=== PATIENT | female | born 1985 | race Caucasian/White ===

== ENCOUNTER → 2017-03-06 | Day surgery (SDC) | payer BC ==
[~2017-03-06] MED LIST: Ketorolac 30 MG/ML SDV IVPUSH ONE; Lactated Ringers 1,000 ML IV SCH; Propofol 200 MG/20 ML SDV IV ONE
[2017-03-06 12:20] VITALS: BP 122/77
--- NOTE | 2017-03-09 07:13 | OR ---
DATE OF OPERATION: 03/06/2017 PREOPERATIVE DIAGNOSIS: 1. ABDOMINAL PAIN. 2. HEMATOCHEZIA. POSTOPERATIVE DIAGNOSIS: 1. ABDOMINAL PAIN. 2. HEMATOCHEZIA. SURGEON: Dl Ward MD PROCEDURE: 1. ESOPHAGOGASTRODUODENOSCOPY WITH BIOPSY X1, SHAN. 2. FULL LENGTH COLONOSCOPY WITH RANDOM BIOPSIES X5. 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 COMPLICATIONS: None. SPECIMEN: 1. Duodenal biopsy. 2. SHAN. 3. Five random colon biopsies. FINDINGS: 1. Normal EGD. 2. Normal full-length colonoscopy. RECOMMENDATIONS: Medical followup with Roxane Ochoa. INDICATIONS: The patient has a long history of chronic abdominal pain. She has had some occasional bright red blood per rectum. Roxane recommended upper and lower endoscopy. DESCRIPTION OF PROCEDURE: The patient was prepped and draped, placed in the left lateral decubitus position. A lubricated Olympus gastroscope was inserted over a bit and advanced the cricopharyngeus area, easily intubated in the esophagus. Esophageal lining was benign in its entire course. The Z-line was crisp and sharp at 39 cm. No hiatal hernia. No distal esophagitis, stricturing, ulceration, or bleeding sites. I see no stricturing, ulceration, or Brown's changes. Scope advanced through the stomach and pylorus and into the second portion of duodenum. Second portion of duodenum and the bulb also looked fine. We did a biopsy for celiac. The scope was brought back into the stomach and retroflexed. The upper fundus and cardia were benign. Upon extension full evaluation of the gastric lining showed no polyps, masses, ulcerations, bleeding sites, or signs of peptic ulcer disease. A CLOtest was obtained. Air was then suctioned from the stomach. The scope was removed without complication. A lubricated Olympus colonoscope was inserted and easily advanced to the cecum. Direct visualization of the ileocecal valve and appendiceal orifice was accomplished. Bowel prep was excellent. Attempted multiple times to get into the ileocecal valve. It was very hyper-acute angle, tried to intubate in here and I could not. I did get an excellent look at the entire colon lining, throughout the entire colon, she had no signs of polyps, masses, ulceration, bleeding sites. No vascular abnormalities or signs of colitis. There were no diverticula. I did do random biopsies in the ascending, transverse, descending, sigmoid, and rectosigmoid area. The rectal vault appeared unremarkable. Retroflexion of scope in the rectum showed no perianal lesions. Air was then suctioned. The scope was removed without complication. HARRY/SARAH /[id number]
== END ==
LOC: CC.SDS 10:35
PROVIDERS: ATTEND Family Medicine
DX: K31.89 Other diseases of stomach and duodenum (principal); N39.0 Urinary tract infection, site not specified; Z88.0 Allergy status to penicillin; Z79.899 Other long term (current) drug therapy
CPT/HCPCS: 36415; 43239; 45380; 84703; 87081; J1885; J2704; J7120